=== PATIENT | female | born 1980 | race Caucasian/White ===

== ENCOUNTER 2017-03-13 05:38 | Day surgery (SDC) | payer OTHER ==
[~2017-03-13 05:38] MED LIST: AMITRIPTYLINE H75 MG PO; TOPAMAX15 MG PO
[2017-03-13] MEDS ORDERED: PERCOCET 5-3251 EACH PO (08:43)
== END 2017-03-13 10:25 | disposition home or self-care (01) ==
LOC: CIR.AMB 05:38
DX: D17.0 Benign lipomatous neoplasm of skin and subcutaneous tissue of head, face and neck (principal)